=== PATIENT | female | born 1965 | race African-American/Black ===

== ENCOUNTER 2019-11-03 01:04 | Emergency (ER) | payer OTHER ==
[~2019-11-03] VITALS: Ht 160 cm; Wt 90.0 kg
--- NOTE | 2019-11-03 01:42 | PHYS DOC ---
Adult General Chief Complaint Chief Complaint: CONSTIPATION HPI HPI Patient is a 54 year old female presents with the chief complaint of constipation -- abdominal pain and back pain. Abdominal pain is located left lower quadrant and radiates to her back. Symptoms have been ongoing approximately 2 weeks and progressively getting worse. Patient states she had diarrhea on tuesday. States she hasnt had a regular bowel movement x 2 weeks. Patient takes opiates for chronic pain. States similar episodes of constipation in the past but not this long and pain hasnt been this intense. Patient denies any nausea or vomiting. States has been advised by PCP to take miralax daily--- but hasnt taken recently due to traveling and that it causes her to have diarrhea. Patient also complains of dysuria for the last several days. Review of Systems Review of Systems Constitutional: Denies fever or chills [] Eyes: Denies change in visual acuity, redness, or eye pain [] HENT: Denies nasal congestion or sore throat [] Respiratory: Denies cough or shortness of breath [] Cardiovascular: No additional information not addressed in HPI [] GI: Denies anausea, vomiting, bloody stools or diarrhea [positive abdominal pain positive constipation] : Denies hematuria [positive dysuria] Musculoskeletal: Denies oint pain [positive back pain] Integument: Denies rash or skin lesions [] Neurologic: Denies headache, focal weakness or sensory changes [] Endocrine: Denies polyuria or polydipsia [] All other systems were reviewed and found to be within normal limits, except as documented in this note. Current Medications Current Medications Current Medications Medications (Trade) Dose Ordered Sig/[facility] Start Time Stop Time Status Last Admin Dose Admin Methylnaltrexone [place] (Relistor) 12 mg 1X ONCE 11/03/19 01:45 11/03/19 01:46 UNV Polyethylene Glycol/ Electrolytes (Golytely) 4,000 ml 1X ONCE 11/03/19 01:45 11/03/19 01:46 UNV Physical Exam Physical Exam Constitutional: Well developed, well nourished, no acute distress, non-toxic appearance. [] HENT: Normocephalic, atraumatic, bilateral external ears normal, oropharynx moist, no oral exudates, nose normal. [] Eyes: PERRLA, EOMI, conjunctiva normal, no discharge. [] Neck: Normal range of motion, no tenderness, supple, no stridor. [] Cardiovascular:Heart rate regular rhythm, no murmur [] Lungs & Thorax: Bilateral breath sounds clear to auscultation [] Abdomen: Bowel sounds normal, soft, no tenderness, no masses, no pulsatile masses. [] Skin: Warm, dry, no erythema, no rash. [] Back: No tenderness, no CVA tenderness. [] Extremities: No tenderness, no cyanosis, no clubbing, ROM intact, no edema. [] Neurologic: Alert and oriented X 3, normal motor function, normal sensory function, no focal deficits noted. [] Psychologic: Affect normal, judgement normal, mood normal. [] EKG EKG [] Radiology/Procedures Radiology/Procedures [] Course & Med Decision Making Course & Med Decision Making Pertinent Labs and Imaging studies reviewed. (See chart for details) []Patient was evaluated for chief complaint. I elected not to do any lab and radiologic imaging based on history of present illness and physical exam. Patient has a history of constipation related to opiate use. Patient takes [place] daily for chronic pain. Patient treated with Relistor then discharged home. Differential diagnosis includes diverticulitis-- patient does state she has a history of diverticulitis but this pain is different and more consistent with her constipation episodes. Patient also given a total of MiraLAX. Patient advised to drink MiraLAX every 8 ounces 10-15 minutes until bowel movement. Dragon Disclaimer Dragon Disclaimer This electronic medical record was generated, in whole or in part, using a voice recognition dictation system. Departure Departure: Impression: Primary Impression: Constipation Additional Impression: UTI (urinary tract infection) Disposition: HOME, SELF-CARE Condition: STABLE Referrals: PCP,NO (PCP) Patient Instructions: Constipation, Adult, Urinary Tract Infection Scripts Phenazopyridine Hcl (PYRIDIUM) 100 Mg Tablet 1 TAB PO TID for urinary discomfort for 3 Days, #9 TAB 0 Refills Prov: MIKE ALVARENGA I DO 11/03/19 Nitrofurantoin Monohyd/M-Cryst (MACROBID 100 MG CAPSULE) 100 Mg Capsule 1 CAP PO BID for 7 Days, #14 CAP 0 Refills Prov: MIKE ALVARENGA I DO 11/03/19 Problem Qualifiers MIKE ALVARENGA DO Nov 03, 2019 01:42
[2019-11-03] MEDS ORDERED: PEG 3350/NA SULF,BICARB,CL/KCL 4,000 ML SOLUTION. PO ONE (02:00)
[2019-11-03] MEDS ORDERED: METHYLNALTREXONE 12 MG/0.6 ML VIAL. SQ ONE (02:00)
[2019-11-03 02:30] VITALS: BP 136/82
[2019-11-03 02:30] LABS: BILIRUBIN,URINE NEG (NEG); CLARITY,URINE CLOUDY; COLOR,URINE STRAW; GLUCOSE,URINE NEG (NEG)
[2019-11-03 02:31] LABS: BACTERIA,URINE MANY /HPF (0-FEW); NITRITE,URINE NEG (NEG); RBC,URINE 20-40 /HPF (0-2); SQUAMOUS EPITHELIAL CELL,UR FEW /LPF; UROBILINOGEN,URINE 0.2 mg/dL (0.2 mg/dL); WBC,URINE TNTC /HPF (0-4)
[2019-11-03] MEDS ORDERED: NITR100C62 PO (02:35)
[2019-11-03] MEDS ORDERED: PHEN100T82 PO (02:35)
[2019-11-03] MEDS ORDERED: PHENAZOPYRIDINE 100 MG TABLET. PO ONE (03:30)
[2019-11-03] MEDS ORDERED: NITROFURANTOIN MONOHYD/M-CRYST 100 MG CAPSULE. PO ONE (03:30)
== END 2019-11-03 03:00 | disposition home or self-care (01) ==
LOC: ER 01:04
DX: K59.00 Constipation, unspecified (principal); N39.0 Urinary tract infection, site not specified
CPT/HCPCS: 81001; 87086; 96372; 99284; J2212